=== PATIENT | male | born 1970 | race Caucasian/White ===

== ENCOUNTER 2016-07-13 20:34 | Inpatient (IN) | payer MEDICAID, OTHER ==
[~2016-07-13] VITALS: Ht 177.8 cm; Wt 92.5 kg
[2016-07-13 20:46] VITALS: BP 122/71
--- NOTE | 2016-07-13 20:53 | NUR ---
PT TAKEN TO BED 6
--- NOTE | 2016-07-13 20:56 | NUR ---
PATIENT PRESENTS TO ED WITH c/o chest pain x 2 weeks radiating to left arm . PT DENIES N/V/D; SKIN IS PINK/WARM/DRY; AAOX4 WITH EVEN AND STEADY GAIT; LUNGS CLEAR BL; HR EVEN AND REGULAR; PT DENIES ANY FEVER, SOB, OR COUGH AT THIS TIME; PATIENT STATES PAIN OF 6/10 AT THIS TIME; VSS; PATIENT POSITIONED FOR COMFORT; HOB ELEVATED; BEDRAILS UP X2; BED DOWN. ER MD MADE AWARE OF PT STATUS.
--- NOTE | 2016-07-13 21:34 | NUR ---
Dr. Rader evaluating patient at bedside.
[2016-07-13] MEDS ORDERED: NITROGLYCERIN 0.4 MG TAB SL ONE (21:45)
[2016-07-13] MEDS ORDERED: ASPIRIN 325 MG TAB PO ONE (21:45)
[2016-07-13 22:14] LABS: HEMATOCRIT 44.9 % (36-52); HEMOGLOBIN 15.9 g/dL (12.0-18.0); MEAN CORPUSCULAR HEMOGLOBIN 32 pg (27-31); MEAN CORPUSCULAR HGB CONC 35 g/dL (33-37); MEAN CORPUSCULAR VOLUME 91 fL (80-94); PLATELET COUNT (AUTO) 214 K/uL (140-450); RED BLOOD CELL COUNT(AUTO) 4.95 MIL/uL (4.20-6.10); RED CELL DISTRIBUTION WIDTH 12.2 % (11.6-13.7)
[2016-07-13] MEDS ORDERED: MORPHINE SULFATE 2 MG/ML SYR IVP PRN (22:25)
[2016-07-13] MEDS ORDERED: HYDROcodone/APAP 5/325 MG 1 TAB TAB PO PRN (22:25)
[2016-07-13] MEDS ORDERED: ONDANSETRON 4 MG/2 ML VIAL IVP PRN (22:25)
[2016-07-13] MEDS ORDERED: ACETAMINOPHEN 325 MG TAB PO PRN (22:25)
[2016-07-13 22:26] LABS: ALBUMIN 3.6 g/dL (3.4-5.0); CALCIUM 8.3 mg/dL (8.5-10.1); CARBON DIOXIDE 16.5 mmol/L (21-32); CREATININE 1.1 mg/dL (0.6-1.3); EOSINOPHILS % (MANUAL) 6 % (0-4); LYMPHOCYTES % (MANUAL) 35 % (20-46); MONOCYTES % (MANUAL) 4 % (5-12); NEUTROPHILS % (MANUAL) 55 (43-65); PLATELET ESTIMATE ADEQUATE; POTASSIUM 3.5 mmol/L (3.5-5.1); TOTAL BILIRUBIN 0.5 mg/dL (0.0-1.0)
[2016-07-13] MEDS: ATORVASTATIN 20 MG TAB PO SCH (22:30)
[2016-07-13] MEDS ORDERED: ASPIRIN 81 MG TAB.CHEW PO SCH (22:30)
[2016-07-13] MEDS ORDERED: METOPROLOL 25 MG TAB PO SCH (22:30)
[2016-07-13 22:31] LABS: CREATINE KINASE MB 0.5 ng/mL (0-3.6)
[2016-07-13 22:50] LABS: TOTAL PROTEIN, SERUM 7.3 g/dL (6.4-8.2)
--- NOTE | 2016-07-13 22:55 | NUR ---
Patient will be admitted to care of DR TUCKER. Admited to TELE. Will go to room 107b. Belongings list completed. Report to HEBER MACEDO.
[2016-07-13 23:05] VITALS: BP 111/79
--- NOTE | 2016-07-13 23:05 | NUR ---
RECEIVED REPORT FROM ED RN FOR CONTINUITY OF CARE. 46 Y.O. MALE BROUGHT TO TELE UNIT WITH DX: CHEST PAIN. PATIENT IS A&OX4, DISCUSSED PLAN OF CARE WITH PATIENT AND FAMILY MEMBER AT BEDSIDE. ORIENTED PATIENT TO ROOM, MRSA SWAB COLLECTED AND WRISTBANDS APPLIED. NO S/S OF RESPIRATORY DISTRESS NOTED ON ROOM AIR. PATIENT DENIES CHEST PAIN AT THIS TIME. SKIN INTACT. IV TO LT HAND PATENT AND FLUSHED. PATIENT GIVEN SNACK PER CARDIAC DIET, TOLERATED WELL. SAFETY PRECAUTIONS ENFORCED. CALL LIGHT PLACED WITHIN REACH. WILL CONTINUE TO MONITOR.
[2016-07-14] VITALS: BP 112/70
[2016-07-14] MEDS: NACL 0.9% 1,000 ML IV SCH ×2 (00:05→18:22)
[2016-07-14] MEDS: LISINOPRIL 5 MG TAB PO SCH ×2 (00:30→08:33)
[2016-07-14] MEDS: LORazepam 2 MG/ML VIAL IVP PRN ×4 (00:39→20:51)
--- NOTE | 2016-07-14 00:39 | NUR ---
VS TAKEN, STABLE. PT REQUESTED MEDICATION FOR ANXIETY, ADMINISTERED PER MD ORDER. CALL LIGHT WITHIN REACH.
--- NOTE | 2016-07-14 02:06 | NUR ---
PATIENT IS SLEEPING. NO S/S OF DISTRESS NOTED. WILL CONTINUE TO MONITOR.
[2016-07-14 04:00] VITALS: BP 112/70
--- NOTE | 2016-07-14 04:05 | NUR ---
VS TAKEN, STABLE. PT IS ASLEEP, NO S/S OF DISTRESS OR DISCOMFORT NOTED. WILL CONTINUE TO MONITOR.
--- NOTE | 2016-07-14 06:10 | NUR ---
PT IS SLEEPING. NO S/S OF DISTRESS OR DISCOMFORT NOTED. WILL CONTINUE TO MONITOR.
[2016-07-14 06:15] LABS: CALCIUM 7.8 mg/dL (8.5-10.1); CARBON DIOXIDE 18.6 mmol/L (21-32); POTASSIUM 3.6 mmol/L (3.5-5.1)
[2016-07-14 06:16] LABS: HEMATOCRIT 43.3 % (36-52); HEMOGLOBIN 15.7 g/dL (12.0-18.0); MEAN CORPUSCULAR HEMOGLOBIN 33 pg (27-31); MEAN CORPUSCULAR HGB CONC 36 g/dL (33-37); MEAN CORPUSCULAR VOLUME 91 fL (80-94); PLATELET COUNT (AUTO) 209 K/uL (140-450); RED BLOOD CELL COUNT(AUTO) 4.78 MIL/uL (4.20-6.10); WHITE BLOOD COUNT (AUTO) 8.3 K/uL (4.8-10.8)
[2016-07-14 06:20] LABS: MAGNESIUM 1.8 mg/dL (1.8-2.4); PHOSPHORUS 3.4 mg/dL (2.5-4.9)
[2016-07-14 06:22] LABS: CHOL/HDL RATIO 16.4 (1-4.5); CHOLESTEROL 312 mg/dL (<200); HDL CHOLESTEROL 19 mg/dL (40-60)
[2016-07-14 07:06] LABS: BAND % (MANUAL) 6 % (0-8); EOSINOPHILS % (MANUAL) 2 % (0-4); LYMPHOCYTES % (MANUAL) 50 % (20-46); MONOCYTES % (MANUAL) 7 % (5-12); NEUTROPHILS % (MANUAL) 35 (43-65)
[2016-07-14 07:10] LABS: CREATININE 0.6 mg/dL (0.6-1.3); TRIGLYCERIDES 2404 mg/dL (30-150)
--- NOTE | 2016-07-14 07:20 | NUR ---
ENDORSED PATIENT TO DAY RN FOR CONTINUITY OF CARE, PATIENT IS IN STABLE CONDITION.
--- NOTE | 2016-07-14 07:21 | NUR ---
RECEIVED REPORT FROM GRAIN SACKER NURSE AT BEDSIDE FOR CONTINUITY OF CARE. PT IS ALERT, AWAKE AND ORIENTED. INTRODUCED MYSELF AND UPDATED THE BOARD. PT HAS IV ON L HAND 20G RUNNING NS@50ML/HR. PT C/O MILD CHEST PAIN 04/24. REFUSED MEDS AT THIS TIME. PT STATED THAT ATIVAN HELPED HIM SLEEP LAST NIGHT. EXPLAINED PLAN OF CARE FOR TODAY, ANSWERED ALL QUESTIONS. CALL LIGHT WITHIN REACH. WILL CONTINUE TO MONITOR.
[2016-07-14 08:00] VITALS: BP 116/76
--- NOTE | 2016-07-14 08:05 | NUR ---
PATIENT HAS BEEN SCREENED AND CATEGORIZED MODERATE NUTRITION RISK. PATIENT WILL BE SEEN WITHIN 3-5 DAYS OF ADMISSION. 07/16/16-07/18/[address]
--- NOTE | 2016-07-14 08:30 | NUR ---
VS WNL. PT REQUESTED ATIVAN FOR ANXIETY. WILL ADMINISTER. GAVE PT SPECIMEN CUP FOR URINE SAMPLE. WILL CONTINUE TO MONITOR.
[2016-07-14] MEDS: ATORVASTATIN 20 MG TAB PO SCH (08:33)
--- NOTE | 2016-07-14 10:00 | NUR ---
PT RESTING IN BED. NO DISTRESS OR COMPLAINTS AT THIS TIME. WILL CONTINUE TO MONITOR.
--- NOTE | 2016-07-14 10:14 | NUR ---
clinical review faxed to [facility]. Tracking number [id number]
--- NOTE | 2016-07-14 11:00 | NUR ---
PT'S IV WAS PULLED OUT. INSERTED A NEW IV ON R HAND 22 G, SALINE FLUSHED, RUNNING NS 50ML/HR. PT TOLERATED WELL. WILL CONTINUE TO MONITOR.
[2016-07-14 11:39] LABS: PARTIAL THROMBOPLASTIN TIME 29.2 secs (22-35.6); PROTHROMBIN TIME 9.9 secs (10.8-13.4)
[2016-07-14 12:00] VITALS: BP 95/63
[2016-07-14 12:20] LABS: FREE T4 (FREE THYROXINE) 0.99 ng/dL (0.76-1.46); THYROID STIMULATING HORMONE 1.17 uIU/mL (0.34-3.76)
--- NOTE | 2016-07-14 13:00 | NUR ---
PT RESTING COMFORTABLY IN BED. NO SIGNS OF DISTRESS. DENIES PAIN. WILL CONTINUE TO MONITOR PT. GAVE PT URINE CUP FOR URINALYSIS AND C&S.
--- NOTE | 2016-07-14 15:05 | NUR ---
PT REQUESTED ATIVAN FOR ANXIETY. ADMINISTERED MED. PT TOLERATED WELL. WILL CONTINUE TO MONITOR.
[2016-07-14 16:00] VITALS: BP 108/56
--- NOTE | 2016-07-14 16:00 | NUR ---
AMBULATED IN THE HALLWAYS WITH SPOUSE. PT TOLERATED WELL. WILL CONTINUE TO MONITOR.
--- NOTE | 2016-07-14 18:35 | NUR ---
PT IS SLEEPING COMFORTABLY. NO SIGNS OF DISTRESS. AT BEDSIDE. ATE 100% OF DINNER. WILL CONTINUE TO MONITOR.
[2016-07-14 18:44] LABS: APPEARANCE,URINE CLEAR (CLEAR); BILIRUBIN,URINE NEGATIVE (NEGATIVE); BLOOD, URINE TRACE-I (NEGATIVE); COLOR,URINE YELLOW (YELLOW); LEUKOCYTE ESTERASE ,URINE NEGATIVE (NEGATIVE); NITRITE, URINE NEGATIVE (NEGATIVE); PROTEIN,URINE NEGATIVE (NEGATIVE); UGLUCOSE NEGATIVE (NEGATIVE); UROBILINOGEN,URINE 0.2 EU/dL (0.2 - 1)
[2016-07-14 18:53] LABS: AMPHETAMINE, URINE NEG. ng/ml (NEG <=1000); BARBITURATE, URINE NEG. ng/ml (NEG <=200); BENZODIAZEPINE, URINE NEG. ng/mL (NEG <=200); CANNABINOID, URINE POS. ng/mL (NEG <=50); COCAINE, URINE NEG. ng/mL (NEG <=300); OPIATE, URINE NEG. ng/mL (NEG <=2000); PHENCYCLIDINE SCREEN,URINE NEG. ng/mL (NEG <=25)
--- NOTE | 2016-07-14 19:20 | NUR ---
ENDORSED PT TO ELECTROPHONIC ENGINEER NURSE. PT IN STABLE CONDITION.
[2016-07-14 19:23] LABS: BACTERIA,URINE RARE /HPF (None Seen); MUCUS,URINE 1+ /LPF (None Seen); RBC,URINE 0-3 /HPF (0-5); SQUAMOUS EPITHELIAL CELL,UR None Seen /LPF (0-3 (FEW)); WBC,URINE 0-3 /HPF (0-5)
--- NOTE | 2016-07-14 19:40 | NUR ---
SEEN PT AWAKE, ALERT AND ORIENTED. FAMILY AT BEDSIDE.
[2016-07-14 20:00] VITALS: BP 114/68
--- NOTE | 2016-07-14 20:50 | NUR ---
SEEN PT AWAKE, ASKING FOR HIS ANXIETY MEDICATION. INITIAL ASSESSMENT DONE. VITAL SIGNS CHECKED. PT GIVEN ATIVAN IVP ORDERED. TEACHINGS PROVIDED. OFFERED TO USE URINAL TONIGHT IF HE WANTS. URINAL PLACED ON BEDSIDE. PT VERBALIZED UNDERSTANDING. PT ASKED FOR PUDDING. INFORMED HIM THAT WILL CHECK ON THE PANTRY.
[2016-07-15] VITALS: BP 109/69
--- NOTE | 2016-07-15 | NUR ---
SEEN PT ASLEEP. AWAKEN PT. VITAL SIGNS CHECKED. PT DENIES ANY DISCOMFORT. SAFETY ENSURED. CALL LIGHT W/IN REACH.
[2016-07-15] MEDS: NACL 0.9% 1,000 ML IV SCH (00:46)
[2016-07-15] MEDS: LORazepam 2 MG/ML VIAL IVP PRN ×4 (01:46→20:52)
[2016-07-15 04:00] VITALS: BP 107/67
--- NOTE | 2016-07-15 04:30 | NUR ---
SEEN PT ASLEEP. VITAL SIGNS CHECKED. PT DENIES ANY PAIN OR DISCOMFORT AT THIS TIME. CALL LIGHT W/IN REACH. WILL CONTINUE TO MONITOR.
[2016-07-15 06:15] LABS: HEMATOCRIT 42.9 % (36-52); HEMOGLOBIN 15.2 g/dL (12.0-18.0); MEAN CORPUSCULAR HEMOGLOBIN 32 pg (27-31); MEAN CORPUSCULAR HGB CONC 35 g/dL (33-37); MEAN CORPUSCULAR VOLUME 91 fL (80-94); PLATELET COUNT (AUTO) 209 K/uL (140-450); RED CELL DISTRIBUTION WIDTH 11.8 % (11.6-13.7); WHITE BLOOD COUNT (AUTO) 8.8 K/uL (4.8-10.8)
[2016-07-15 06:54] LABS: CALCIUM 8.4 mg/dL (8.5-10.1); CREATININE 0.9 mg/dL (0.6-1.3)
[2016-07-15 07:02] LABS: MAGNESIUM 1.8 mg/dL (1.8-2.4); PHOSPHORUS 3.2 mg/dL (2.5-4.9)
[2016-07-15 07:04] LABS: ANION GAP 17.1 (8-16); CARBON DIOXIDE 22.1 mmol/L (21-32); POTASSIUM 4.2 mmol/L (3.5-5.1)
[2016-07-15 07:10] LABS: LYMPHOCYTES % (MANUAL) 47 % (20-46); NEUTROPHILS % (MANUAL) 43 (43-65)
[2016-07-15 07:11] LABS: EOSINOPHILS % (MANUAL) 2 % (0-4); MONOCYTES % (MANUAL) 8 % (5-12)
[2016-07-15 07:12] LABS: PLATELET ESTIMATE ADEQUATE
--- NOTE | 2016-07-15 07:15 | NUR ---
BEDSIDE REPORT GIVEN TO DAYSHIFT NURSE.
--- NOTE | 2016-07-15 07:16 | NUR ---
RECEIVED REPORT FROM MACHINE TACK PULLER NURSE AT BEDSIDE. PT IS ALERT AWAKE AND ORIENTED. INTRODUCED OURSELVES AND UPDATED THE BOARD. PT HAS IV SITE ON R HAND 22 G RUNNING 50ML/HR. PT DENIES PAIN. PT ASKED IF HE WILL BE ABLE TO GO HOME TODAY. WILL ASKED THE DOCTORS AND KEEP PT POSTED. WILL CONTINUE TO MONITOR.
[2016-07-15 08:00] VITALS: BP 106/69
[2016-07-15] MEDS: LISINOPRIL 5 MG TAB PO SCH (08:37)
[2016-07-15] MEDS: ATORVASTATIN 20 MG TAB PO SCH (08:37)
--- NOTE | 2016-07-15 09:25 | NUR ---
IV WAS PULLED OUT ACCIDENTALLY. WILL INSERT NEW ONE AFTER SHOWER. NO BLEEDING NOTED. WILL CONTINUE TO MONITOR.
[2016-07-15] MEDS ORDERED: METOPROLOL 25 MG TAB PO SCH (10:01)
--- NOTE | 2016-07-15 10:05 | NUR ---
PT SLEEPING. TELE CHARGER TESTER STATED LEADS WERE OFF. REATTACHED LEADS. WILL CONTINUE TO MONITOR.
[2016-07-15] MEDS ORDERED: ECOTRIN 81 MG TABEC PO SCH (10:30)
--- NOTE | 2016-07-15 11:00 | NUR ---
PT RESTING COMFORTABLY IN BED. NO SIGNS OF DISTRESS. NO COMPLAINTS. WILL CONTINUE TO MONITOR.
[2016-07-15 12:00] VITALS: BP 109/89
--- NOTE | 2016-07-15 12:30 | NUR ---
PT WANTED TO GO AMA. EXPLAINED CONSEQUENCES OF GOING AMA, ENCOURAGED PT TO STAY AND SEE EDGING MACHINE OPERATOR PLANNED. PT AND AGREED TO STAY. PT TOOK A SHOWER. TOLERATED WELL. REINSERTED AN IV ON L HAND 22 G. REATTACHED BOMB LOADER. PT TOLERATED WELL.
--- NOTE | 2016-07-15 14:22 | NUR ---
PT SLEEPING COMFORTABLY IN BED. AT BEDSIDE. WILL CONTINUE TO MONITOR.
[2016-07-15 16:00] VITALS: BP 93/52
--- NOTE | 2016-07-15 17:55 | NUR ---
PT IS EATING DINNER IN BED. AT BEDSIDE. NO SIGNS OF DISTRESS NOTED. NO COMPLAINTS AT THIS TIME. WILL CONTINUE TO MONITOR.
--- NOTE | 2016-07-15 19:15 | NUR ---
RECEIVED REPORT FROM HELLEN LOVELACE AT BEDSIDE. INITIAL ASSESSMENT COMPLETED. PT AAOX4. PT AMBULATES WITH STEADY GAIT. PT DENIES PAIN AT THIS TIME. PT HAS IV ON LEFT HAND G 22 INFUSING FLUIDS WELL. PT'S SKIN IS INTACT. ORIENTED PT TO ROOM AND SURROUNDINGS AND USE OF CALL LIGHT. EXPLAINED PLAN OF CARE TO PT AND HE VERBALIZES UNDERSTANDING. WILL CONTINUE TO MONITOR PT.
--- NOTE | 2016-07-15 19:15 | NUR ---
ENDORSED PT TO THE TECHNICAL ENGINEER NURSE AT BEDSIDE FOR CONTINUITY OF CARE. PT IS IN STABLE CONDITION.
[2016-07-15 20:00] VITALS: BP 111/69
--- NOTE | 2016-07-15 20:00 | NUR ---
DR. RAHMAN IN TO SEE PT. WILL FOLLOW UP ON ORDERS.
--- NOTE | 2016-07-15 20:55 | NUR ---
PT REQUESTED ATIVAN FOR ANXIETY; VS STABLE. WILL CONTINUE TO MONITOR PT.
--- NOTE | 2016-07-15 22:51 | NUR ---
PT SLEEPING AT THIS TIME. NO SIGNS OF DISTRESS/DISCOMFORT NOTED. WILL CONTINUE TO MONITOR PT.
[2016-07-16] VITALS: BP 115/71
--- NOTE | 2016-07-16 00:05 | NUR ---
PT REMOVED HIS TELE MONITOR. I CONVINCED HIM TO LET ME PUT IT BACK; PT AGREED. WILL CONTINUE TO MONITOR PT.
--- NOTE | 2016-07-16 02:57 | NUR ---
PT USING HIS CELL PHONE. PT STABLE, CALL LIGHT WITHIN REACH.
[2016-07-16 04:00] VITALS: BP 113/71
[2016-07-16] MEDS: NACL 0.9% 1,000 ML IV SCH (04:24)
--- NOTE | 2016-07-16 05:01 | NUR ---
PT AMBULATED TO THE RESTROOM WITH; PT STABLE, WILL CONTINUE TO MONITOR PT.
[2016-07-16 06:52] LABS: ANION GAP 14.2 (8-16); CALCIUM 8.5 mg/dL (8.5-10.1); CARBON DIOXIDE 22.4 mmol/L (21-32); CREATININE 0.9 mg/dL (0.6-1.3); POTASSIUM 3.6 mmol/L (3.5-5.1)
[2016-07-16 06:55] LABS: HEMATOCRIT 44.3 % (36-52); HEMOGLOBIN 15.6 g/dL (12.0-18.0); MEAN CORPUSCULAR HEMOGLOBIN 32 pg (27-31); MEAN CORPUSCULAR HGB CONC 35 g/dL (33-37); MEAN CORPUSCULAR VOLUME 91 fL (80-94); PLATELET COUNT (AUTO) 201 K/uL (140-450); RED BLOOD CELL COUNT(AUTO) 4.89 MIL/uL (4.20-6.10); WHITE BLOOD COUNT (AUTO) 9.5 K/uL (4.8-10.8)
--- NOTE | 2016-07-16 07:25 | NUR ---
ENDORSED PLAN OF CARE TO DAY SHIFT NURSE. PT IN STABLE CONDITION.
--- NOTE | 2016-07-16 07:26 | NUR ---
RECEIVED REPORT FROM THE SENIOR FACILITIES MANAGER NURSE AT BEDSIDE FOR CONTINUITY OF CARE. PT IS AWAKE AND ORIENTED. RE-INTRODUCED MYSELF AND UPDATED THE BOARD. SENIOR FACILITIES MANAGER STATED THAT DR. RAHMAN DID SEE PT LAST NIGHT. TODAY'S PLAN? WILL AWAIT ORDERS AND WILL NOTIFY THE PT. PT IS ANXIOUS TO BE GOING HOME TODAY. IV STILL IN PLACE, L HAND 22G NS AT 50ML. VS WNL. WILL CONTINUE TO MONITOR PT.
[2016-07-16 07:36] LABS: NEUTROPHILS % (MANUAL) 50 (43-65)
[2016-07-16 07:37] LABS: BAND % (MANUAL) 2 % (0-8); EOSINOPHILS % (MANUAL) 4 % (0-4); LYMPHOCYTES % (MANUAL) 38 % (20-46); MONOCYTES % (MANUAL) 6 % (5-12)
[2016-07-16 08:00] VITALS: BP 132/69
[2016-07-16 08:12] LABS: PHOSPHORUS 3.6 mg/dL (2.5-4.9)
[2016-07-16] MEDS: ATORVASTATIN 20 MG TAB PO SCH (08:53)
[2016-07-16] MEDS: LISINOPRIL 5 MG TAB PO SCH (08:53)
--- NOTE | 2016-07-16 08:54 | NUR ---
ADMINISTERED MORNING MEDS. PT TOLERATED WELL. PT GOING BACK TO SLEEP. NO SIGNS OF DISTRESS. WILL CONTINUE TO MONITOR PT.
[2016-07-16] MEDS ORDERED: METOPROLOL 25 MG TAB PO SCH (09:00)
[2016-07-16] MEDS ORDERED: ECOTRIN 81 MG TABEC PO SCH (09:00)
--- NOTE | 2016-07-16 10:00 | NUR ---
WILL PUT IN ORDERS FOR D/C. NOTIFIED PT. PT HAS AN APPT ALREADY MADE WITH PCP, DR. FERNANDEZ ON WEDNESDAY. WILL CALL DR. RAHMAN ABOUT STRESS TEST AND WILL WRITE ORDERS FOR D/C. WILL BE WAITING ORDERS.
--- NOTE | 2016-07-16 11:25 | NUR ---
CM NOTE CONCURRENT REVIEW SENT TO [facility] FAX# [phone] MADELYN GUERRERO PH# [phone]
[2016-07-16 12:00] VITALS: BP 93/55
[2016-07-16] MEDS ORDERED: FENO145T PO (13:08)
[2016-07-16] MEDS ORDERED: ASPI81TA28 PO (13:08)
[2016-07-16] MEDS ORDERED: PRAV40TA1 PO (13:08)
--- NOTE | 2016-07-16 13:40 | NUR ---
WENT OVER THE DISCHARGE INSTRUCTION WITH PT AND AT BEDSIDE. PT IS TO ONLINE CONTENT COORDINATOR RX FROM HIS PHARMACY. WILL F/U WITH ON WEDNESDAY. REMOVED TELE BOX. IV, CANNULA INTACT, NO BLEEDING NOTED. REMOVED ALL ARM BANDS. ANSWERED ALL QUESTIONS. WILL CALL WHEN HE IS READY TO LEAVE.
--- NOTE | 2016-07-16 13:55 | NUR ---
PT LEFT ON WHEELCHAIR. ACCOMPANIED BY MYSELF. PT'S HAD GONE OUT PREVIOUSLY WITH HIS PERSONAL BELONGINGS AND IS BRING THE CAR AROUND. PT IN STABLE CONDITION.
== END 2016-07-16 13:55 | disposition home or self-care (01) | DRG 205 ==
LOC: MED 20:34 → MTU 22:22
PROVIDERS: ADMIT Family Medicine; ATTEND Family Medicine
DX: M94.0 Chondrocostal junction syndrome [Tietze] (principal); N17.0 Acute kidney failure with tubular necrosis; E78.5 Hyperlipidemia, unspecified; I11.9 Hypertensive heart disease without heart failure; I25.10 Atherosclerotic heart disease of native coronary artery without angina pectoris; E78.1 Pure hyperglyceridemia; E78.00 Pure hypercholesterolemia, unspecified; E11.9 Type 2 diabetes mellitus without complications; K21.9 Gastro-esophageal reflux disease without esophagitis; Z82.49 Family history of ischemic heart disease and other diseases of the circulatory system; I25.2 Old myocardial infarction; Z82.3 Family history of stroke; Z95.5 Presence of coronary angioplasty implant and graft
CPT/HCPCS: 36415; 71010; 80048; 80053; 80305; 81001; 82150; 82550; 82553; 83036; 83690; 83735; 83880; 84100; 84439; 84443; 84479; 84484; 85025; 85610; 85730; 87081; 93005; 99285; J2060; J7030

== ENCOUNTER 2018-01-26 09:03 | Emergency (ER) | payer OTHER ==
[~2018-01-26] VITALS: Ht 177.8 cm; Wt 99.8 kg
[~2018-01-26 09:03] MED LIST: ASPI-1173 PO; FENO145T PO; PRAV40TA1 PO
[2018-01-26 09:25] VITALS: BP 129/92
[2018-01-26] MEDS ORDERED: KETOROLAC 60 MG/2 ML VIAL IM ONE (09:45)
[2018-01-26 12:20] VITALS: BP 139/89
== END 2018-01-26 12:18 | disposition home or self-care (01) ==
LOC: MED 09:03
DX: R33.9 Retention of urine, unspecified (principal); N99.820 Postprocedural hemorrhage of a genitourinary system organ or structure following a genitourinary system procedure; I10 Essential (primary) hypertension; E78.5 Hyperlipidemia, unspecified; Z90.49 Acquired absence of other specified parts of digestive tract; F17.200 Nicotine dependence, unspecified, uncomplicated; Z79.82 Long term (current) use of aspirin; Z79.899 Other long term (current) drug therapy
CPT/HCPCS: 51702; 96372; 99284; J1885